=== PATIENT | female | born 1955 | race Caucasian/White ===

== ENCOUNTER 2017-10-27 15:06 | Inpatient (IN) | payer OTHER ==
[~2017-10-27] VITALS: Ht 160 cm; Wt 64.4 kg
[2017-10-27 16:04] LABS: *BILIRUBIN,URIN NEGATIVE (NEGATIVE); *BLOOD, URINE 2+ (NEGATIVE); *CLARITY,URINE SLIGHTLY CLOUDY (CLEAR); *COLOR,URINE YELLOW (YELLOW); *KETONES,URINE NEGATIVE (NEGATIVE); *PROTEIN,URINE NEGATIVE (NEGATIVE); *UROBILINOGEN,URINE 0.2 E.U./dl (NORMAL); LEUKOCYTE ESTERASE ,URINE 1+ (NEGATIVE); NITRITE, URINE NEGATIVE (NEGATIVE); PH,URINE 6.5 (5.0-8.0)
[2017-10-27 16:14] LABS: UGLUCOSE 2+ (NEGATIVE)
[2017-10-27 16:15] LABS: BACTERIA,URINE FEW /HPF (NONE SEEN); SQUAMOUS EPITHELIAL CELL,UR MODERATE /HPF (NONE SEEN); WBC,URINE 50-80 /HPF (0-3)
--- NOTE | 2017-10-27 16:27 | NUR ---
The abscess on pt's RT inner thigh is open w/ drainage, MD initiated the drainage, swab collected and sent to lab. Dressing applied per MD order.
[2017-10-27] MEDS ORDERED: PIPERACILLIN SODIUM/TAZOBACTAM 4.5 G in IV DEXTROSE 5% 50 ML IV SCH (16:31)
[2017-10-27] MEDS ORDERED: VANCOMYCIN IV 1,000 MG in IV DEXTROSE 5% 250 ML IV ONE (16:31)
[2017-10-27] MEDS ORDERED: VANCOMYCIN IV 200 ML ONE (16:59)
[2017-10-27] MEDS ORDERED: PIPERACILLIN/TAZO 4.5 GM VIAL IV ONE (16:59)
[2017-10-27 17:02] LABS: BASOPHILS # (AUTO) 0.1 K/uL (0.0-8.0); BASOPHILS % (AUTO) 0.5 % (0.0-2.0); EOSINOPHILS % (AUTO) 0.2 % (0.0-7.0); HEMATOCRIT 34.2 % (31.2-41.9); HEMOGLOBIN 11.7 g/dL (10.9-14.3); LYMPHOCYTES # (AUTO) 2.7 K/uL (20.0-40.0); LYMPHOCYTES % (AUTO) 19.6 % (20.5-51.5); MEAN CORPUSCULAR HEMOGLOBIN 29.8 uug (24.7-32.8); MEAN CORPUSCULAR HGB CONC 34 g/dL (32.3-35.6); MEAN CORPUSCULAR VOLUME 87.5 fL (75.5-95.3); MONOCYTES # (AUTO) 0.9 K/uL (2.0-10.0); MONOCYTES % (AUTO) 6.5 % (0.0-11.0); NEUTROPHILS # (AUTO) 10.2 K/uL (1.8-8.9); NEUTROPHILS % (AUTO) 73.2 % (38.5-71.5); PLATELET COUNT (AUTO) 322 K/uL (179-408); RED BLOOD CELL COUNT(AUTO) 3.91 MIL/uL (3.63-4.92)
[2017-10-27 17:10] LABS: POTASSIUM 4.1 mmol/L (3.5-5.1)
[2017-10-27 17:11] LABS: CREATININE 0.8 mg/dL (0.6-1.3)
[2017-10-27 17:16] LABS: BILIRUBIN,TOTAL 0.4 mg/dL (0.2-1.0); TOTAL PROTEIN, SERUM 7.9 g/dL (6.4-8.2)
[2017-10-27] MEDS ORDERED: SIMV20TA2 PO (17:38)
[2017-10-27] MEDS ORDERED: TERA2CAP4 PO (17:38)
[2017-10-27] MEDS ORDERED: FURO-152 PO (17:38)
[2017-10-27] MEDS ORDERED: ASPI81TA31 PO (17:38)
[2017-10-27] MEDS ORDERED: SITA100T PO (17:38)
[2017-10-27] MEDS ORDERED: METF10002 PO (17:38)
[2017-10-27] MEDS ORDERED: HYDR12.55 PO (17:38)
[2017-10-27] MEDS ORDERED: GLIM4TAB3 PO (17:38)
[2017-10-27] MEDS ORDERED: METO-356 PO (17:38)
[2017-10-27] MEDS ORDERED: ERGO2000 PO (17:38)
[2017-10-27] MEDS ORDERED: ONDANSETRON 4 MG/2 ML VIAL IV PRN (18:00)
[2017-10-27] MEDS ORDERED: Z GUARD REMEDY PASTE 57 GM TUBE TOP PRN (18:00)
[2017-10-27] MEDS ORDERED: ACETAMINOPHEN 325 MG TABLET PO PRN (18:00)
[2017-10-27] MEDS ORDERED: HYDROCODONE/APAP 10-325 MG TABLET PO PRN (18:00)
[2017-10-27] MEDS ORDERED: MAGNESIUM HYDROXIDE 30 ML LIQUID UDC PO PRN (18:00)
[2017-10-27] MEDS ORDERED: VANCOMYCIN IV 1 G in PREMIXED 0 EACH IV SCH (18:00)
--- NOTE | 2017-10-27 18:02 | NUR ---
Belonging list completed by vinay Lundy is not candidate for MRSA.
[2017-10-27] MEDS ORDERED: DEXTROSE 50% 50 ML DISP.SYRIN IV PRN (18:15)
--- NOTE | 2017-10-27 18:25 | NUR ---
Clinical Pharmacy Note: Vancomycin Dosing per Pharmacy Subjective: Vancomycin IV to start on this 61 yo female patient for cellulitis. Patient received vanco 1gm IV x1 in today x1 1730. Objective: BUN 10/Scr 0.8 WBC 14 Temperature 98.9 ht 160 cm wt 62 kg Assessment/Plan: Will start vancomycin 1000mg IVPB Q18hr for a predicted vancomycin steady state trough level of 15.7 mcg/ml. Second dose is due tomorrow at 11am. Will draw a vancomycin trough level prior to the 4th dose of vancomycin (not ordered yet). Will monitor renal function and adjust vancomycin dose, if needed, should renal function change significantly. Will follow daily.
[2017-10-27 18:26] VITALS: BP 105/66
--- NOTE | 2017-10-27 18:30 | NUR ---
ADMIT A 61YO FEMALE, NON GHANAIAN SPEAKING C/O OF ABSCESS ON THE RIGHT INNER THIGH. AWAKE AND ORIENTED X3. NO APPARENT DISTRESS NOTED. AWAITING FOR DR MASSEY TO CALL BACK FOR ORDERS.
[2017-10-27] MEDS: METOPROLOL SUCCINATE XL 25 MG TAB.SR.24H PO SCH (19:00)
--- NOTE | 2017-10-27 19:00 | NUR ---
RECEIVED PATIENT IN BED, ALERT ORIENTED, NO SOB NO CHEST PAIN, RYTHM SINUS RYTHM AT THIS TIME, R INNER THIGH ABSCESS PICTURE TAKEN, NO COMPLAIN OF PAIN AT THIS TIME, PATIENT SPEAK AMHARIC/KYRGYZ DAUGHTER INTERPRETE, BUT PATIENT ABLE TO TELL HER NEEDS. CALL LIGHT WITHIN REACH.
--- NOTE | 2017-10-27 19:20 | NUR ---
PICTURE NOT TAKEN ON THE ABSCESS AREA OF THE RIGHT INNER THIGH. ENDORSED IT TO RN WILL FOR THE NIGHT.
[2017-10-27] MEDS: IV NS 1000 ML 1,000 ML IV PRN (20:47)
[2017-10-27] MEDS: SIMVASTATIN 20 MG TABLET PO SCH (21:06)
[2017-10-27] MEDS: TERAZOSIN 2 MG CAPSULE PO SCH (21:07)
[2017-10-27] MEDS: ENOXAPARIN SODIUM 40 MG/0.4 ML DISP.SYRIN SQ SCH (21:20)
[2017-10-27] MEDS: BLOOD SUGAR DIAGNOSTIC 1 EACH STRIP VI SCH (23:38)
[2017-10-27] MEDS: INSULIN REGULAR, HUMAN 300 UNIT/3 ML VIAL SQ PRN (23:46)
[2017-10-28] VITALS: BP 126/49
[2017-10-28] MEDS: NORMAL SALINE IV SCH ×3 (01:13→18:10)
[2017-10-28] MEDS: TAZOBACTAM IV SCH ×3 (01:13→18:10)
[2017-10-28] MEDS: PIPERACILLIN SODIUM IV SCH ×3 (01:13→18:10)
[2017-10-28 04:00] VITALS: BP 138/60
[2017-10-28] MEDS: HYDROCODONE/APAP 5-325MG TABLET PO PRN ×2 (05:21→22:41)
[2017-10-28] MEDS: BLOOD SUGAR DIAGNOSTIC 1 EACH STRIP VI SCH ×4 (05:23→20:59)
--- NOTE | 2017-10-28 06:32 | NUR ---
PATIENT SLEPT MOST OF THE NIGHT, RYTHM SINUS RYTHM AT THIS TIME, NO SOB NO CHEST PAIN NOTED, COMPLAIN OF SORE THROAT, GIVEN PAIN MEDICATIONS WITH HELP, WILL NOTIFY MD IN AM, DRESSING INTACT AT R INNER THIGH ABCESS, CONT TO MONITOR.
[2017-10-28 06:52] LABS: BASOPHILS # (AUTO) 0.1 K/uL (0.0-8.0); BASOPHILS % (AUTO) 0.9 % (0.0-2.0); EOSINOPHILS # (AUTO) 0.2 K/uL (0.0-0.7); EOSINOPHILS % (AUTO) 1.8 % (0.0-7.0); HEMATOCRIT 32.4 % (31.2-41.9); HEMOGLOBIN 10.9 g/dL (10.9-14.3); LYMPHOCYTES # (AUTO) 2.8 K/uL (20.0-40.0); LYMPHOCYTES % (AUTO) 24.5 % (20.5-51.5); MEAN CORPUSCULAR HEMOGLOBIN 29.4 uug (24.7-32.8); MEAN CORPUSCULAR HGB CONC 34 g/dL (32.3-35.6); MEAN CORPUSCULAR VOLUME 87.2 fL (75.5-95.3); MONOCYTES # (AUTO) 0.8 K/uL (2.0-10.0); MONOCYTES % (AUTO) 7.1 % (0.0-11.0); NEUTROPHILS # (AUTO) 7.4 K/uL (1.8-8.9); NEUTROPHILS % (AUTO) 65.7 % (38.5-71.5); PLATELET COUNT (AUTO) 323 K/uL (179-408); RED BLOOD CELL COUNT(AUTO) 3.71 MIL/uL (3.63-4.92); WHITE BLOOD COUNT (AUTO) 11.2 K/uL (3.8-11.8)
[2017-10-28 07:56] LABS: CREATININE 0.9 mg/dL (0.6-1.3); MAGNESIUM 1.7 mg/dL (1.8-2.4); PHOSPHOROUS 3.4 mg/dL (2.5-4.9); POTASSIUM 3.8 mmol/L (3.5-5.1)
[2017-10-28 08:38] LABS: THYROID STIMULATING HORMONE 1.617 mIU/mL (0.358-3.740)
[2017-10-28] MEDS: SITAGLIPTIN PHOSPHATE 50 MG TABLET PO SCH (08:47)
[2017-10-28] MEDS: ASPIRIN 81 MG TAB.CHEW PO SCH (08:47)
[2017-10-28] MEDS: GLIMEPIRIDE 4 MG TABLET PO SCH ×2 (08:47→17:17)
[2017-10-28] MEDS: INSULIN REGULAR, HUMAN 300 UNIT/3 ML VIAL SQ PRN ×4 (08:51→21:06)
[2017-10-28] MEDS ORDERED: METFORMIN HCL 500 MG TABLET PO SCH (09:00)
[2017-10-28] MEDS: BENZOCAINE/MENTH/CETYLPYRD LOZENGE MM PRN (11:57)
[2017-10-28 11:59] VITALS: BP 130/61
[2017-10-28] MEDS: VANCOMYCIN IV 1 G in PREMIXED 0 EACH IV SCH (12:30)
[2017-10-28] MEDS: IV NS 1000 ML 1,000 ML IV PRN (15:31)
[2017-10-28] MEDS: MAGNESIUM SULFATE/D5W 100 ML IV SCH ×2 (15:33→16:28)
--- NOTE | 2017-10-28 15:52 | NUR ---
Clinical Pharmacy Note: Vancomycin Dosing per Pharmacy Subjective: Vancomycin IV to continue on this 61 yo female patient for cellulitis. Patient received vanco 1gm IV x1 in today x1 1730. Objective: BUN 11/Scr 0.9 WBC 11.2 Temperature 100 ht 160 cm wt 62 kg Assessment/Plan: Will continue vancomycin 1000mg IVPB Q18hr for a predicted vancomycin steady state trough level of 15.7 mcg/ml. Third dose is due tomorrow at 05am. Will draw a vancomycin trough level prior to the 4th dose of vancomycin (not ordered yet). Will monitor renal function and adjust vancomycin dose, if needed, should renal function change significantly. Will follow daily.
[2017-10-28 16:04] VITALS: BP 126/55
[2017-10-28] MEDS: METOPROLOL SUCCINATE XL 25 MG TAB.SR.24H PO SCH (17:18)
--- NOTE | 2017-10-28 18:36 | NUR ---
NEW IV ON RIGHT SIDE FOREARM 20 GAUGE. OTHER IV PT FELT PAIN SO DISCONTINUE BEFORE INFILTRATION. PT IS OBSERVED RESTING, CALM, COOPERATIVE, 0/10 PAIN AT THIS TIME. NO SIGNS OF RESPIRATORY DISTRESS. CONTINUE TO MONITOR PT.
--- NOTE | 2017-10-28 19:30 | NUR ---
RECEIVE IN BED, NO SOB NO CHEST PAIN, SINUS RYTHM WITH EPISODES OF SINUS TACHY, WITH ACTIVITY, NO HEMATURIA NOTED,, DRESSING INTACT ON R INNER THIGH, AMBULATE WITH STEADY GAIT CONT TO MONITOR.
[2017-10-28 20:26] VITALS: BP 148/70
[2017-10-28] MEDS: TERAZOSIN 2 MG CAPSULE PO SCH (20:53)
[2017-10-28] MEDS: SIMVASTATIN 20 MG TABLET PO SCH (20:53)
[2017-10-28] MEDS: ENOXAPARIN SODIUM 40 MG/0.4 ML DISP.SYRIN SQ SCH (20:56)
[2017-10-29 00:48] VITALS: BP 130/49
[2017-10-29] MEDS: TAZOBACTAM IV SCH ×2 (01:37→09:37)
[2017-10-29] MEDS: NORMAL SALINE IV SCH ×2 (01:37→09:37)
[2017-10-29] MEDS: PIPERACILLIN SODIUM IV SCH ×2 (01:37→09:37)
[2017-10-29 04:00] VITALS: BP 138/58
[2017-10-29] MEDS: BENZOCAINE/MENTH/CETYLPYRD LOZENGE MM PRN ×2 (04:19→09:42)
[2017-10-29] MEDS: VANCOMYCIN IV 1 G in PREMIXED 0 EACH IV SCH (04:20)
[2017-10-29 06:35] LABS: CREATININE 0.9 mg/dL (0.6-1.3); MAGNESIUM 2.1 mg/dL (1.8-2.4); POTASSIUM 3.7 mmol/L (3.5-5.1)
[2017-10-29] MEDS: BLOOD SUGAR DIAGNOSTIC 1 EACH STRIP VI SCH ×2 (06:51→11:06)
--- NOTE | 2017-10-29 07:01 | NUR ---
PATIENT SLEPT MOST OF THE NIGHT, CONT ON PAIN MANAGEMENT, COMPLAIN OF SORE THROAT GIVEN LOZENGES ORDERED, NO SOB NO CHEST PAIN, SINUS RYTHM, SINUS TACHY UP 102 BUT NO SUSTAINED. CONT TO MONITOR, DRESSING CHANGED ON R INNER THIGH ABSENT WITH SMALL AMOUNT OF BROWNISH DRAINAGE, NO HEMATURIA NOTED, CONT TO MONITOR.
--- NOTE | 2017-10-29 07:35 | NUR ---
RECEIVED PATIENT IN BED, ALERT ORIENTED, NO SOB NO CHEST PAIN, RHYTHM SINUS ON TELE, NO COMPLAIN OF PAIN AT THIS TIME, PATIENT SPEAK CHINESE/GRENADIAN , BUT PATIENT ABLE TO TELL HER NEEDS. CALL LIGHT WITHIN REACH.
[2017-10-29] MEDS: INSULIN REGULAR, HUMAN 300 UNIT/3 ML VIAL SQ PRN (07:44)
[2017-10-29] MEDS: ASPIRIN 81 MG TAB.CHEW PO SCH (08:05)
[2017-10-29] MEDS: SITAGLIPTIN PHOSPHATE 50 MG TABLET PO SCH (08:05)
[2017-10-29] MEDS: GLIMEPIRIDE 4 MG TABLET PO SCH (08:05)
[2017-10-29] MEDS ORDERED: BENZOCAINE/MENTH/CETYLPYRD LOZENGE MM PRN (09:30)
[2017-10-29] MEDS ORDERED: SULF1TAB48 PO (09:55)
[2017-10-29 10:26] VITALS: BP 146/62
--- NOTE | 2017-10-29 11:40 | NUR ---
D/C ORDERS RECEIVED NOTED AND CARRIED OUT,D/C [place] PER MD ORDERS,DISCHARGE INSTRUCTIONS GIVEN TO THE PT.PT LEFT THE FACILITY VIA PRIVATE CAR IN STABLE CONDITION.
== END 2017-10-29 11:44 | disposition home or self-care (01) | DRG 383 ==
LOC: ER 15:07 → TELE 18:05
DX: L03.115 Cellulitis of right lower limb (principal); E87.1 Hypo-osmolality and hyponatremia; I10 Essential (primary) hypertension; L02.415 Cutaneous abscess of right lower limb; N39.0 Urinary tract infection, site not specified; E78.5 Hyperlipidemia, unspecified; Z79.84 Long term (current) use of oral hypoglycemic drugs; Z79.899 Other long term (current) drug therapy; E83.39 Other disorders of phosphorus metabolism; E11.9 Type 2 diabetes mellitus without complications; R31.9 Hematuria, unspecified
CPT/HCPCS: 36415; 83735; 84100; 84443; 85025; 87040; 87070; A4663; J1650; J1815; J2543; J3370; J3475; J3490; J7030; J7060